=== PATIENT | female | born 1945 | race Caucasian/White ===

== ENCOUNTER → 2016-11-24 | Outpatient (CLI) | payer MEDICARE ==
--- NOTE | 2016-12-14 15:52 | EM ---
The patient was monitored for 14 days, between the 29 of November and the December. The rhythm strips revealed sinus mechanism with short episode of paroxysmal atrial tachycardia. There was no evidence of ventricular ectopic activity or significant pauses. MTDD
== END | disposition home or self-care (01) ==
LOC: RADECHMAIN 12:09
PROVIDERS: ATTEND Family Medicine
DX: R00.0 Tachycardia, unspecified (principal); R07.89 Other chest pain
CPT/HCPCS: 93270; 93271

== ENCOUNTER → 2018-03-06 | Outpatient (CLI) | payer MEDICARE ==
--- NOTE | 2018-03-06 09:30 | BD ---
EXAMINATION TYPE: Axial Bone Density DATE OF EXAM: 03/06/2018 COMPARISON: NONE CLINICAL HISTORY: 72 YR OLD FEMALE.....ICD-10 CODE: M81.0 AGE RELATED OSTEOPOROSIS Height: 62.5 Weight: 133 FRAX RISK QUESTIONS: NOTHING TO NOTE HERE RISK FACTORS HISTORY OF: Family History of Osteoporosis: YES, HER MOTHER NO FX OF HIP Active: YES Diet low in dairy products/other sources of calcium: YES, A BIT LOW Postmenopausal woman: PARTIAL HYST AT 36 YRS OLD Take estrogen and/or progesterone medications: YES FOR 28 YRS MEDICATIONS: Additional Medications: NOTHING TO NOTE HERE Additional History: NOTHING TO NOTE HERE EXAM MEASUREMENTS: Bone mineral densitometry was performed using the [employer] System. Bone mineral density as measured about the Lumbar spine is: ----- L1-L4(G/cm2): 1.525 T Score Values are as follows: ----- L1: 1.6 ----- L2: 1.9 ----- L3: 3.3 ----- L4: 4.2 ----- L1-L4: 2.9 Bone mineral density FIRST BONE DENSITY STUDY AT [facility] Bone mineral density about the R hip (g/cm2): 0.831 Bone mineral density about the L hip (g/cm2): 0.888 T Score values are as follows: -----R Neck: -0.5 -----L Neck: -1.0 -----R Total: -1.4 -----L Total: -1.0 Bone mineral density FIRST BONE DENSITY AT [facility] FRAX%s: THERE IS A 9.1% CHANCE OF A MAJOR OSTEOPOROTIC FX AND A 1.1% FOR A HIP FX.....PROBABILITY OF FX IN 10 YR TIME IMPRESSION: Osteopenia (T Score between -2.5 and -1). There is slightly increased risk of fracture and the patient may be considered for treatment. Re-Screen 2-5 years. NOTE: T-SCORE=SD OF THE YOUNG ADULT MEAN.
--- NOTE | 2018-03-07 11:24 | MM ---
Reason for exam: screening (asymptomatic). Last mammogram was performed 2 years ago. History: Patient is postmenopausal and has history of other cancer at age 40. Family history of premenopausal breast cancer in sister at age 40 and premenopausal breast cancer in sister at age 38. Taking estrogen for 26 years. Physical Findings: A clinical breast exam by your physician is recommended on an annual basis and results should be correlated with mammographic findings. MG Screening Mammo w CAD Bilateral CC and MLO view(s) were taken. Prior study comparison: March 04, 2016, bilateral MG screening mammo w CAD. November 10, 2014, bilateral MG screening mammo w CAD. There are scattered fibroglandular densities. No significant changes when compared with prior studies. ASSESSMENT: Negative, BI-RAD 1 RECOMMENDATION: Routine screening mammogram of both breasts in 1 year.
== END | disposition home or self-care (01) ==
LOC: RADMAMWWP 07:00
PROVIDERS: ATTEND Internal Medicine Geriatric Medicine
DX: Z12.31 Encounter for screening mammogram for malignant neoplasm of breast (principal); M85.80 Other specified disorders of bone density and structure, unspecified site; M81.0 Age-related osteoporosis without current pathological fracture
CPT/HCPCS: 77067; 77080

== ENCOUNTER → 2019-02-22 | Outpatient (CLI) | payer MEDICARE ==
[2019-02-22 07:19] LABS: Basophils # (A) 0.1 k/uL (0-0.2); Basophils % (A) 2 %; Eosinophils # (A) 0.3 k/uL (0-0.7); Eosinophils % (A) 6 %; HCT 41.2 % (34.0-46.0); HGB 13.1 gm/dL (11.4-16.0); Lymphocytes # (A) 1.8 k/uL (1.0-4.8); Lymphocytes % (A) 40 %; MCH 30.5 pg (25.0-35.0); MCHC 31.8 g/dL (31.0-37.0); Monocytes # (A) 0.3 k/uL (0-1.0); Monocytes % (A) 7 %; Neutrophils # (A) 1.9 k/uL (1.3-7.7); Neutrophils % (A) 42 %; Platelet Count 248 k/uL (150-450); RBC 4.29 m/uL (3.80-5.40); RDW 13.1 % (11.5-15.5); WBC 4.6 k/uL (3.8-10.6)
[2019-02-22 11:23] LABS: African American GFR (CKD) 99.6 (60.0-200.0); Albumin 4.2 g/dL (3.80-4.90); Albumin/Globulin Ratio 2.21 (1.60-3.17); Calcium 9.1 mg/dL (8.7-10.3); Chol/HDL Ratio 2.88; Globulin 1.9 g/dL (1.6-3.3); Total Bilirubin 0.5 mg/dL (0.2-1.2); Total Protein 6.1 g/dL (6.2-8.2)
[2019-02-22 15:19] LABS: Hemoglobin A1C 5.3 % (4.0-6.0)
== END | disposition home or self-care (01) ==
LOC: LABWHC1 06:31
PROVIDERS: ATTEND Internal Medicine Geriatric Medicine
DX: E61.1 Iron deficiency (principal); K21.9 Gastro-esophageal reflux disease without esophagitis; E78.2 Mixed hyperlipidemia; R73.9 Hyperglycemia, unspecified; R00.1 Bradycardia, unspecified
CPT/HCPCS: 36415; 80053; 80061; 83036; 84443; 85025

== ENCOUNTER → 2020-10-15 | Outpatient (CLI) | payer MEDICARE ==
--- NOTE | 2020-10-15 08:03 | XR ---
EXAMINATION TYPE: XR Hip Bilateral Complete DATE OF EXAM: 10/15/2020 CLINICAL HISTORY: Pain TECHNIQUE: AP and frogleg views of the both hips were obtained. Correlation made with x-rays of similar hips from 2014. COMPARISON: As noted above. FINDINGS: No acute fracture or subluxation is seen. There is bilateral hip joint space narrowing with eburnatio n and marginal osteophyte formation about the acetabulum and lateral portion of the femoral heads rep resenting moderate to severe degenerative disease. There is no femoral head collapse at this time. No lytic or blastic process is appreciated. 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 Extensive periarticular osteophyte fo rmation. Worsening compared to 2014. If patient continues to be symptomatic, surgical consultation brianne white be considered.
[2020-10-15 11:34] LABS: Basophils # (A) 0.04 X 10*3/uL (0.00-0.10); Basophils % (A) 0.9 %; Eosinophils # (A) 0.11 X 10*3/uL (0.04-0.35); Eosinophils % (A) 2.6 %; HCT 42.9 % (37.2-46.3); Lymphocytes # (A) 1.76 X 10*3/uL (0.90-5.00); Lymphocytes % (A) 41.1 %; MCH 32.4 pg (27.0-32.0); MCHC 32.6 g/dL (32.0-37.0); MCV 99.3 fL (80.0-97.0); Mean Platelet Volume 10.2 fL (9.5-12.2); Monocytes # (A) 0.54 X 10*3/uL (0.20-1.00); Monocytes % (A) 12.6 %; Neutrophils # (A) 1.82 X 10*3/uL (1.80-7.70); Neutrophils % (A) 42.6 %; Platelet Count 267 X 10*3/uL (140-440); RBC 4.32 X 10*6/uL (4.10-5.20); RDW 12.5 % (11.5-14.5); WBC 4.28 X 10*3/uL (4.50-10.00)
[2020-10-15 16:04] LABS: African American GFR (CKD) 98.9 (60.0-200.0); Albumin 4.3 g/dL (3.80-4.90); Albumin/Globulin Ratio 2.05 (1.60-3.17); Anion Gap 8.1 mmol/L (4.00-12.00); BUN/Creat Ratio 8.57 Ratio (12.00-20.00); Calcium 9.1 mg/dL (8.7-10.3); Carbon Dioxide 28.9 mmol/L (21.6-31.8); Chol/HDL Ratio 2.75; Globulin 2.1 g/dL (1.6-3.3); LDL Cholesterol,Calculated 174.8 mg/dL (0.0-131.0); Non-African American GFR(CKD) 85.4 (60.0-200.0); Potassium 4.2 mmol/L (3.5-5.5); Total Bilirubin 0.6 mg/dL (0.3-1.2); Total Protein 6.4 g/dL (6.2-8.2); VLDL Calculation 14.2 mg/dL (5.00-40.00)
== END | disposition home or self-care (01) ==
LOC: LABWHC1 07:12
PROVIDERS: ATTEND Internal Medicine Geriatric Medicine
DX: E61.1 Iron deficiency (principal); E78.2 Mixed hyperlipidemia; R73.9 Hyperglycemia, unspecified; M16.0 Bilateral primary osteoarthritis of hip
CPT/HCPCS: 36415; 73521; 80053; 80061; 84443; 85025; 86900; 86901

== ENCOUNTER 2021-12-21 06:20 | Day surgery (SDC) | payer MEDICARE ==
[2021-12-20 11:59] VITALS: BMI 21.2
[2021-12-21] MEDS ORDERED: LACTATED RINGERS 1,000 ML IV SCH (06:40)
[2021-12-21] MEDS ORDERED: LIDOCAINE 1% (10MG/ML) FOR IV START INTRADERMA ONE (06:45)
[2021-12-21 07:00] VITALS: RESP 16; TEMP 97
[2021-12-21] MEDS ORDERED: PROPOFOL 10 MG/ML 20 ML VIAL IV ONE (07:09)
[2021-12-21] MEDS ORDERED: LIDOCAINE 2% INJ 20 MG/ML (2 ML VIAL) ONE (07:09)
--- NOTE | 2021-12-21 07:35 | P.PCN ---
Date of Procedure: 12/21/21 Procedure(s) Performed: Brief history: Patient is a pleasant 76-year-old white female scheduled for an upper endoscopy as well as colonoscopy as a part of evaluation of intermittent dysphagia to solids/GERD and prior history of colon polyps. Patient stated she underwent an upper endoscopy with dilation 4 years ago while in [place]. Lately has been having worsening dysphagia. Procedure performed: Esophagogastroduodenoscopy with biopsy and dilation Colonoscopy Preoperative diagnosis: GERD intermittent dysphagia to solids History of colon polyps Anesthesia: MAC Procedure: After informed consent was obtained from the patient was brought into the endoscopy unit and IV sedation was administered by anesthesia under continuous monitoring. Initially upper endoscopy was done. The Olympus GF 160 video endoscope was inserted inserted into the mouth and esophagus intubated without any difficulty and was gradually advanced into the stomach and duodenum and carefully examined. The bulb and second part of the duodenum appeared normal. The scope was then withdrawn into the stomach adequately insufflated with air and upon careful examination the antrum had mild diffuse gastritis and biopsies were done from this area. Mucosa of the body, cardia and fundus appeared normal. The scope was then withdrawn into the esophagus. The GE junction was located at 40 cm to the incisors. It appeared regular with no erythema erosions or ulcerations. He was a widely patent distal esophageal Schatzki's and identified which was dilated using 18-20 mm balloon in a sequential fashion for 60 seconds. Rest of the esophagus appeared normal. Patient tolerated the procedure well. At this time the patient continued to remain sedation. Initial digital rectal examination was normal. Olympus CF 160 video colonoscope was then inserted into the rectum and gradually advanced to the cecum without any difficulty. Careful examination was performed as the scope was gradually being withdrawn. The prep was excellent. The cecum, ascending colon, transverse colon, descending colon, sigmoid colon and rectum appeared normal. Extensive left sided diverticulosis Retroflexion was performed in the rectum and grade 2 internal hemorrhoids were noted. Patient tolerated the procedure well. Impression: 1. Upper endoscopy revealed mild antral gastritis and widely patent distal esophageal Schatzki's ring status post dilation using 18-20 mm TTS balloon as described above 2. Colonoscopy revealed extensive left diverticulosis and grade 2 internal hemorrhoids Recommendations: Findings of this examination were discussed with the patient as well as a family. She was advised to follow with the biopsy results. She'll be started on Pepcid 20 mg twice daily and was briefly educated about antireflux measures. Recommend repeat colonoscopy in 5 years because of the prior history of colon polyps
[2021-12-21 07:41] VITALS: PULSE 61
[2021-12-21 07:54] VITALS: BP 148/81
== END 2021-12-21 08:31 | disposition home or self-care (01) ==
LOC: ORWHC2ENDO 06:20
PROVIDERS: ATTEND Internal Medicine Gastroenterology
DX: K22.2 Esophageal obstruction (principal); K29.50 Unspecified chronic gastritis without bleeding; K57.30 Diverticulosis of large intestine without perforation or abscess without bleeding; K64.1 Second degree hemorrhoids; Z86.010 Personal history of colon polyps; Z88.0 Allergy status to penicillin; Z79.1 Long term (current) use of non-steroidal anti-inflammatories (NSAID); Z79.899 Other long term (current) drug therapy; Z79.890 Hormone replacement therapy; Z80.0 Family history of malignant neoplasm of digestive organs; Z80.3 Family history of malignant neoplasm of breast
CPT/HCPCS: 88305; 45378; 43239; 43249; J2704; J2001; C1726

== ENCOUNTER → 2023-01-17 | Outpatient (CLI) | payer MEDICARE ==
--- NOTE | 2023-01-17 13:06 | BD ---
EXAMINATION TYPE: Axial Bone Density DATE OF EXAM: 01/17/2023 CLINICAL HISTORY: 77 years old Female. ICD-10 CODE: M81.0 AGE-RELATED OSTEOPOROSIS Nuclear Medicine Study in the last 2 weeks: Barium Study in the last week: : Height: Weight: FRAX RISK QUESTIONS: Alcohol (3 or more units per day): no Family History (Parent hip fracture): no Glucocorticoids (More than 3mos): no History of Fracture in Adulthood: no Secondary Osteoporosis: 1. Type 1 Diabetes: no 2. Hyperthyroidism: no 3. Menopause before 45: no 4. Malnutrition: no 5. Chronic liver disease: no Rheumatoid Arthritis: no Current Tobacco Use: no RISK FACTORS HISTORY OF: Hip Fracture (Right/Left): no Spine Fracture: no History of Wrist Fracture: no Surgery to Spine/Hip(right/left)/Wrist (right/left): Lt Hip Replacement When: 2022 Family History of Osteoporosis: mother Active: no Diet low in dairy products/other sources of calcium: no Postmenopausal woman: yes Take estrogen and/or progesterone medications: no Lost more than 2 inches in height since high school: no Frequent falls: yes Poor Health: no Hyperparathyroidism: no Adrenal Insufficiency: no MEDICATIONS: Prednisone or other steroids: no Thyroid Medications: no Osteoporosis Medications: no Additional History: anxiety meds, EXAM MEASUREMENTS: Bone mineral densitometry was performed using the [employer] System. Bone mineral density as measured about the Lumbar spine is: ----- L1-L4(G/cm2): 1.378 T Score Values are as follows: ----- L1: 0.6 ----- L2: 1.1 ----- L3: 2.4 ----- L4: 2.9 ----- L1-L4: 1.7 Z Score Values are as follows: ----- L1: 2.7 ----- L2: 3.2 ----- L3: 4.4 ----- L4: 5.0 ----- L1-L4: 3.7 Bone mineral density has: decreased -9.6 % since study of: 03/06/2018 Bone mineral density about the R hip (g/cm2): 0.758 T Score values are as follows: -----R Neck: -1.5 -----R Total: -2.0 Z Score values are as follows: -----R Neck: 0.7 -----R Total: 0.1 Bone mineral density has: decreased -8.8 % since study of: 03/06/2018 FRAX%s: The graph provided illustrates a 11.4% chance for a major osteoporotic fx and a 2.6% chance f or the hips probability for fx in 10 years time. IMPRESSION: Osteopenia (T Score between -2.5 and -1). There is slightly increased risk of fracture and the patient may be considered for treatment. Re-Screen 2-5 years. NOTE: T-SCORE=SD OF THE YOUNG ADULT MEAN.
== END | disposition home or self-care (01) ==
LOC: RADBDWWP 12:18
PROVIDERS: ATTEND Internal Medicine Geriatric Medicine
DX: M81.0 Age-related osteoporosis without current pathological fracture (principal); M85.851 Other specified disorders of bone density and structure, right thigh
CPT/HCPCS: 77080

== ENCOUNTER → 2024-11-28 | Outpatient (CLI) | payer MEDICARE ==
[2024-11-28 10:17] LABS: Basophils # (A) 0.06 X 10*3/uL (0.00-0.10); Basophils % (A) 1.1 %; Eosinophils # (A) 0.29 X 10*3/uL (0.04-0.35); Eosinophils % (A) 5.3 %; HCT 42.8 % (37.2-46.3); HGB 14.2 g/dL (12.0-15.0); Lymphocytes % (A) 41.8 %; MCH 32.8 pg (27.0-32.0); MCHC 33.2 g/dL (32.0-37.0); MCV 98.8 FL (80.0-97.0); Mean Platelet Volume 9.8 FL (9.5-12.2); Monocytes % (A) 10.9 %; NRBC Per 100 WBC 0 X 10*3/uL (0.00-0.01); Neutrophils # (A) 2.23 X 10*3/uL (1.80-7.70); Neutrophils % (A) 40.5 %; Platelet Count 224 X 10*3/uL (140-440); RBC 4.33 X 10*6/uL (4.10-5.20); RDW 12.6 % (11.5-14.5)
[2024-11-28 10:30] LABS: Chol/HDL Ratio 2.27 Ratio; LDL Cholesterol,Calculated 107.7 mg/dL (0.0-131.0); VLDL Calculation 16.52 mg/dL (5.00-40.00)
== END | disposition home or self-care (01) ==
LOC: LABWHC1 07:12
PROVIDERS: ATTEND Internal Medicine Geriatric Medicine
DX: D64.9 Anemia, unspecified (principal); E78.2 Mixed hyperlipidemia
CPT/HCPCS: 36415; 80061; 85025